=== PATIENT | male | born 1975 | race African-American/Black ===

== ENCOUNTER 2018-08-21 01:19 | Emergency (ER) | payer SELFPAY ==
[~2018-08-21] VITALS: Ht 172.7 cm; Wt 77.3 kg
[2018-08-21 01:20] VITALS: TEMP 97.4
[2018-08-21 06:16] VITALS: BP 118/83; PULSE 82
== END 2018-08-21 06:17 | disposition home or self-care (01) ==
LOC: COL.ER 01:19
DX: F10.129 Alcohol abuse with intoxication, unspecified (principal); Y90.8 Blood alcohol level of 240 mg/100 ml or more